=== PATIENT | female | born 1950 | race American Indian/Alaskan Native ===

== ENCOUNTER 2021-01-18 16:10 | Emergency (ER) | payer MEDICARE, OTHER, MEDICAID | END 2021-01-18 17:16 | disposition left against medical advice (07) | LOC: JP.ED 16:10 | DX: S69.92XA Unspecified injury of left wrist, hand and finger(s), initial encounter (principal); Z53.21 Procedure and treatment not carried out due to patient leaving prior to being seen by health care provider ==

== ENCOUNTER 2021-10-14 07:49 | Emergency (ER) | payer MEDICARE, OTHER ==
[2021-10-14] MEDS ORDERED: Nitroglycerin 0.4 MG Tab.SL SL PRN (07:50)
[2021-10-14] MEDS ORDERED: Morphine 4 MG/ML Syringe IVPUSH PRN (07:50)
[2021-10-14] MEDS ORDERED: LORazepam 2 MG/ML SDV IVPUSH ONE (07:51)
[2021-10-14] MEDS ORDERED: Sodium Chloride 0.9% 1,000 ML IV SCH (08:00)
[2021-10-14 08:28] LABS: TROPONIN I HIGH SENSITIVITY 9.4 pg/mL (<=60.3)
[2021-10-14] MEDS ORDERED: Iopamidol 612 MG/ML 100 ML Bottle IV PRN (09:18)
[2021-10-14] MEDS ORDERED: Sodium Chloride 0.9% 100 ML IV SCH (09:30)
== END 2021-10-14 11:42 ==
LOC: JP.ED 07:49
DX: R07.9 Chest pain, unspecified (principal); I25.10 Atherosclerotic heart disease of native coronary artery without angina pectoris; I25.2 Old myocardial infarction; Z88.0 Allergy status to penicillin; Z79.899 Other long term (current) drug therapy
CPT/HCPCS: 36415; 71045; 71275; 80053; 80305; 83605; 83690; 84484; 85025; 85379; 96374; 96375; 99283; 99285; A9270; J2060; J2270; J3490; J7030; Q9967

== ENCOUNTER 2022-01-12 17:16 | Emergency (ER) | payer MEDICARE, OTHER, MEDICAID ==
[2022-01-12] MEDS ORDERED: Sodium Chloride 0.9% 1,000 ML IV ONE (18:13)
[2022-01-12] MEDS ORDERED: Sodium Chloride 0.9% 10 ML Syringe FLUSH PRN (18:13)
[2022-01-12 18:46] LABS: ESTIMATED GFR 96 mL/min (>60)
[2022-01-12] MEDS ORDERED: Ketorolac 30 MG/ML SDV IVPUSH ONE (18:57)
[2022-01-12] MEDS ORDERED: Metoclopramide 10 MG/2 ML SDV IVPUSH ONE (18:59)
[2022-01-12] MEDS ORDERED: Acetaminophen 325 MG Tab PO ONE (18:59)
[2022-01-12] MEDS ORDERED: Baclofen 10 MG Tab PO ONE (20:37)
== END 2022-01-12 21:01 | disposition home or self-care (01) ==
LOC: JP.ED 17:16
DX: R51.9 Headache, unspecified (principal); Z72.89 Other problems related to lifestyle; I25.2 Old myocardial infarction; Z88.0 Allergy status to penicillin; F17.210 Nicotine dependence, cigarettes, uncomplicated
CPT/HCPCS: 36415; 70450; 80053; 80307; 85025; 96361; 96374; 96375; 99284; A9270; J1885; J2765; J3490; J7030; 99283

== ENCOUNTER 2022-02-01 10:59 | Emergency (ER) | payer MEDICARE, OTHER, MEDICAID | END 2022-02-01 11:56 | disposition left against medical advice (07) | LOC: JP.ED 10:59 | DX: Z53.21 Procedure and treatment not carried out due to patient leaving prior to being seen by health care provider (principal) ==

== ENCOUNTER 2022-05-29 13:37 | Emergency (ER) | payer MEDICARE, MEDICAID | END 2022-05-29 14:34 | disposition home or self-care (01) | LOC: JP.ED 13:37 | DX: L30.9 Dermatitis, unspecified (principal); I25.10 Atherosclerotic heart disease of native coronary artery without angina pectoris; J44.9 Chronic obstructive pulmonary disease, unspecified; Z88.6 Allergy status to analgesic agent; Z88.0 Allergy status to penicillin; Z90.710 Acquired absence of both cervix and uterus | CPT/HCPCS: 99282 ==

== ENCOUNTER 2024-01-24 17:09 | Emergency (ER) | payer MEDICARE, MEDICAID ==
[2024-01-24] MEDS ORDERED: Acetaminophen 325 MG Tab ONE (18:23)
[2024-01-24] MEDS: Acetaminophen 325 MG Tab PO ONE (18:27)
== END 2024-01-24 19:27 | disposition home or self-care (01) ==
LOC: JP.ED 17:09
DX: R07.89 Other chest pain (principal); F10.90 Alcohol use, unspecified, uncomplicated; F17.200 Nicotine dependence, unspecified, uncomplicated; Z74.09 Other reduced mobility; I25.10 Atherosclerotic heart disease of native coronary artery without angina pectoris; J44.9 Chronic obstructive pulmonary disease, unspecified; Z90.710 Acquired absence of both cervix and uterus; Z88.0 Allergy status to penicillin; Z88.8 Allergy status to other drugs, medicaments and biological substances
CPT/HCPCS: 71045; 93005; 99285; A9270

== ENCOUNTER 2024-06-20 15:35 | Emergency (ER) | payer MEDICARE, MEDICAID ==
[2024-06-20] MEDS: HYDROmorphone 0.5 MG/0.5 ML Syringe IVPUSH ONE ×2 (18:15→20:35)
[2024-06-20] MEDS ORDERED: Naloxone 0.4 MG/ML SDV IVPUSH PRN (20:28)
[2024-06-21] MEDS ORDERED: Naloxone 0.4 MG/ML SDV IVPUSH PRN (00:29)
[2024-06-21] MEDS: HYDROmorphone 0.5 MG/0.5 ML Syringe IVPUSH ONE ×5 (00:35→09:41)
[2024-06-21] MEDS: Sodium Chloride 0.9% 1,000 ML IV SCH (05:31)
[2024-06-21] MEDS: Ondansetron 4 MG/2 ML SDV IVPUSH ONE (08:29)
== END 2024-06-21 09:56 ==
LOC: JP.ED 15:35
DX: S72.411A Displaced unspecified condyle fracture of lower end of right femur, initial encounter for closed fracture (principal); Z88.0 Allergy status to penicillin; Z88.6 Allergy status to analgesic agent; Z79.51 Long term (current) use of inhaled steroids; Y04.0XXA Assault by unarmed brawl or fight, initial encounter
CPT/HCPCS: 70450; 73562-26-RT; 73562-RT; 96361; 96374; 96375; 96376; 99284; 99285-25; J2405; J7030

== ENCOUNTER 2024-08-18 16:17 | Emergency (ER) | payer MEDICARE, MEDICAID ==
[2024-08-18 17:07] LABS: BASOPHILS ABSOLUTE AUTO 0.04 K/uL (0.00-0.10); EOSINOPHILS ABSOLUTE AUTO 0.24 K/uL (0.00-0.40); EOSINOPHILS PERCENT AUTO 5.7 % (0.0-5.4); HEMATOCRIT 33.5 % (34.3-46.0); HEMOGLOBIN 11.1 g/dL (11.2-15.5); IMMATURE GRAN PERCENT AUTO 0.5 % (0.0-0.7); LYMPHOCYTES ABSOLUTE AUTO 1.29 K/uL (0.8-3.3); LYMPHOCYTES PERCENT AUTO 30.7 % (11.4-47.7); MEAN CORPUSCULAR HEMOGLOBIN 27.7 pg (31.6-35.5); MEAN CORPUSCULAR HGB CONC 33.1 g/dL (31.6-35.5); MEAN CORPUSCULAR VOLUME 83.5 fL (81.4-99.0); MONOCYTES ABSOLUTE AUTO 0.36 K/uL (0.20-0.90); MONOCYTES PERCENT AUTO 8.6 % (3.3-12.6); NEUTROPHILS ABSOLUTE AUTO 2.25 K/uL (1.0-7.6); NEUTROPHILS PERCENT AUTO 53.5 % (40.0-78.1); PLATELET COUNT,PLT 351 K/uL (130-375); RED BLOOD CELL COUNT 4.01 M/uL (3.77-5.24); WHITE BLOOD CELL COUNT,WBC 4.2 K/uL (3.2-11.0)
[2024-08-18 17:09] LABS: IMMATURE GRAN ABSOLUTE AUTO 0.02 K/uL (0.00-0.23)
[2024-08-18 17:37] LABS: A/G RATIO 0.6 (1.2-2.2); ALANINE AMINOTRANSFERASE,ALT 18 U/L (12-78); ALBUMIN 3.4 g/dL (3.4-5.0); ALKALINE PHOSPHATASE 172 U/L (46-116); ASPARTATE AMNIOTRANSFERASE,AST 22 U/L (15-37); BILIRUBIN TOTAL 0.3 mg/dL (0.2-1.0); BLOOD UREA NITROGEN,BUN 6 mg/dL (7-18); CALCIUM 8.5 mg/dL (8.5-10.1); CARBON DIOXIDE,CO2 24 mmol/L (21-32); CHLORIDE,CL 97 mmol/L (100-108); CREATININE 0.6 mg/dL (0.6-1.0); EST CRCL DRUG DOSING (CG) 66.05 mL/min; ESTIMATED GFR 95 mL/min (>60); GLUCOSE RANDOM 92 mg/dL (74-106); POTASSIUM,K 3.9 mmol/L (3.6-5.2); SODIUM,NA 133 mmol/L (140-148); TSH ULTRASENSITIVE 3.591 uIU/mL (0.358-3.740)
[2024-08-18 17:38] LABS: APPEARANCE,URINE CLEAR (CLEAR); BILIRUBIN,URINE NEGATIVE (NEGATIVE); COLOR,URINE YELLOW (YELLOW); GLUCOSE,URINE NEGATIVE (NEGATIVE); KETONES,URINE NEGATIVE (NEGATIVE); LEUKOCYTE ESTERASE,URINE NEGATIVE (NEGATIVE); NITRITE,URINE NEGATIVE (NEGATIVE); OCCULT BLOOD,URINE SMALL (NEGATIVE); PH,URINE 5.5 (5.0-8.0); PROTEIN,URINE NEGATIVE (NEGATIVE); UROBILINOGEN,URINE 0.2 EU/dL (0.2-1.0)
[2024-08-18 17:41] LABS: ANION GAP 15.9 mmol/L (5.0-14.0)
[2024-08-18 17:44] LABS: AMPHETAMINES SCREEN, URINE NEGATIVE (NEGATIVE); BARBITURATE SCREEN,URINE NEGATIVE (NEGATIVE); BENZODIAZEPINES SCREEN,URINE NEGATIVE (NEGATIVE); METHADONE SCREEN, URINE NEGATIVE (NEGATIVE); METHAMPHETAMINES SCREEN, URINE NEGATIVE (NEGATIVE); OXYCODONE SCREEN,URINE NEGATIVE (NEGATIVE); PROPOXYPHENE SCREEN,URINE NEGATIVE (NEGATIVE); THC SCREEN,URINE 50 NG/ML NEGATIVE (NEGATIVE)
[2024-08-18 17:49] LABS: AMORPHOUS SEDIMENT,URINE NOT SEEN; BACTERIA,URINE MODERATE; EPITHELIAL CELLS,URINE NOT SEEN; MUCUS,URINE NOT SEEN; RBC,URINE 0-5 (0-5); WBC,URINE 0-5 (0-5)
== END 2024-08-18 17:30 | disposition left against medical advice (07) ==
LOC: JP.ED 16:17
DX: F10.10 Alcohol abuse, uncomplicated (principal); I25.2 Old myocardial infarction; I25.10 Atherosclerotic heart disease of native coronary artery without angina pectoris; J44.9 Chronic obstructive pulmonary disease, unspecified; Z90.710 Acquired absence of both cervix and uterus; Z88.0 Allergy status to penicillin; Z88.6 Allergy status to analgesic agent; Z79.51 Long term (current) use of inhaled steroids; Y90.6 Blood alcohol level of 120-199 mg/100 ml; Z79.899 Other long term (current) drug therapy
CPT/HCPCS: 36415; 80053; 80143; 80179; 80305-QW; 80307; 81001; 84443; 85025; 99284